=== PATIENT | female | born 1990 | race Caucasian/White ===

== ENCOUNTER 2016-11-20 18:52 | Emergency (ER) | payer OTHER ==
[~2016-11-20] VITALS: Ht 175.3 cm; Wt 60.4 kg
[2016-11-20 18:57] VITALS: TEMP 36.4; Ht 175.3 cm; Wt 60.4 kg
[2016-11-20 19:36] LABS: BASO % 0.5 %; BASO ABS # 0.04 K/uL (0-0.2); COMPLETE YES; EOS % 1.7 %; HEMATOCRIT 39.9 % (37-47); IG% 0.2 %; LYMPH % 18.3 %; LYMPH ABS # 1.48 K/uL (1.2-3.4); MEAN CELL VOLUME 87.7 fL (80-100); MEAN CORPUSCULAR HEMOGLOBIN 30.5 pg (25-34); MEAN CORPUSCULAR HGB CONC 34.8 g/dl (32-36); MEAN PLATELET VOLUME 9.7 fL (7.4-10.4); MONO % 4.4 %; NEUT % 74.9 %; PLATELET COUNT 315 K/uL (130-400); RED BLOOD COUNT 4.55 M/uL (4.2-5.4)
[2016-11-20] MEDS ORDERED: ESTROGEN TD (19:44)
[2016-11-20] MEDS ORDERED: LEVO25TA5 PO (19:47)
[2016-11-20] MEDS ORDERED: ESTR2TAB PO (19:47)
[2016-11-20] MEDS ORDERED: ENOX40IN SQ (19:48)
[2016-11-20] MEDS ORDERED: PRGI IM (19:50)
[2016-11-20] MEDS ORDERED: PROGESTERONE SUPP PV (19:52)
[2016-11-20 19:53] LABS: BUN/CREATININE RATIO 6.5 (10-20); CALCIUM 9.2 mg/dl (8.5-10.1); CREATININE 0.68 mg/dl (0.60-1.20); POTASSIUM 3.8 mmol/L (3.5-5.1)
[2016-11-20] MEDS ORDERED: PREN1TAB29 PO (19:55)
[2016-11-20 20:15] LABS: URINE APPEARANCE CLEAR (CLEAR); URINE BILIRUBIN NEG (NEG); URINE COLOR YELLOW; URINE NITRITE NEG (NEG); URINE SPECIFIC GRAVITY 1.003 (1.000-1.030); UROBILINOGEN NEG (NEG)
[2016-11-20 20:18] LABS: MANUAL MICROSCOPIC REQUIRED? YES; REVIEW REQ? NO
--- NOTE | 2016-11-20 20:32 | DIAGNOSTIC IMAGING REPORT ---
ECTOPIC CLINICAL HISTORY: vag bleed 8 weeks TECHNIQUE: Ultrasound COMPARISON STUDY: None FINDINGS: Intrauterine gestational sac. A pole is identified. Cardiac activity is identified. Right ovary measures 3.2 cm with normal vascular flow. Left ovary measures 2.57 measures normal vascular flow. IMPRESSION: 1. Single, viable intrauterine estimated at 6 weeks gestational age. 2. A repeat ultrasound is recommended in 7 days to 10 days confirm viability as the gestational age currently is at the limits of resolution for viability evaluation with absolute certainty. The above report was generated using voice recognition software. It may contain grammatical, syntax or spelling errors. Electronically signed by: Mian Eng M.D. 11/20/2016 8:31 PM Dictated Date/Time: 11/20/2016 8:29 PM
[2016-11-20 20:38] LABS: URINE BACTERIA 1+ (NEG); URINE RBC 0-4 /hpf (0-4); URINE WBC 0 /hpf (0-5)
[2016-11-20 21:21] VITALS: BP 112/78; PULSE 82; O2SAT 100
--- NOTE | 2016-11-21 00:20 | EMERGENCY ROOM VISIT NOTE ---
History Report prepared by Colby: Terell Mora Under the Supervision of: Dr. Ezekiel Nicole M.D. First contact with patient: 18:59 Chief Complaint: ED VAG BLEEDING Stated Complaint: BLEEDING, 6WKS History of Present Illness The patient is a 25 year old female who presents to the Emergency Room with complaints of intermittent vaginal bleeding that started a week ago. The patient states that she is 6 weeks and noticed she was spot bleeding last week. She states that she called [facility] who told her to rest, keep her feet up, and wait for her ultrasound that is in three days. The patient states that the bleeding resolved until today when she was at the football game and noticed some spotting again. She states that she left the game and went home. The patient states that she put her progesterone suppository in and took it out without any indication of bleeding. She states that following this, she began vaginally bleeding. The patient states that this is her second and it is an IVF . She states that she usually uses a progesterone suppository three times a day and in oil every other day. She admits that she did her oil treatment today at 1700. The patient admits to dry heaving, but reports that she believes this is due to her typical morning sickness. She admits to a history of hyperthyroidism and factor 5 Leiden, which she takes medication for. She is on Lovenox. The patient denies any h/o miscarriage, hypertension, pelvic pain, and fever. Source of History: patient Onset: a week ago Position: other (vaginal region) Symptom Intensity: mild Quality: other (vaginal bleeding) Timing: intermittent Associated Symptoms: No fevers, No abdominal pain Review of Systems See HPI for pertinent positives & negatives. A total of 10 systems reviewed and were otherwise negative. Past Medical & Surgical Medical Problems: (1) Asthma (2) Factor 5 Leiden mutation, heterozygous (3) Fibromyalgia (4) Hypothyroidism (5) IBS (irritable bowel syndrome) Surgical Problems: (1) History of appendectomy (2) History of cholecystectomy Family History FH: breast cancer Social History Smoking Status: Never Smoker Smokeless Tobacco Use: No Alcohol Use: none Drug Use: none Occupation Status: unemployed Current/Historical Medications Scheduled Enoxaparin (Lovenox), 40 MG SQ DAILY Estradiol (Estradiol), 2 MG PO BID Levothyroxine Sodium (Levothyroxine Sodium), 25 MCG PO DAILY Vit W/ Ferrous Fumara (), 1 TAB PO DAILY Progesterone (Progesterone), 1 ML IM Q2D [Estrogen Patch 1.56], 6.24 TD Q2D [Progesterone Supp], 100 MG PV TID Allergies Coded Allergies: Tramadol (Verified Allergy, Severe, seizure, 11/20/16) Physical Exam Vital Signs Date Time Temp Pulse Resp B/P (MAP) Pulse Ox O2 Delivery O2 Flow Rate FiO2 11/20/16 21:21 82 18 112/78 100 11/20/16 18:57 36.4 98 18 139/78 98 Room Air Physical Exam Constitutional: Vital signs reviewed. Eyes: Pupils are equal round reactive to light. Conjunctiva are noninjected. ENT: Pharynx is clear without erythema or exudate. Mucous membranes are moist. Neck supple without meningeal signs. Respiratory: Clear to auscultation bilaterally. Breath sounds are equal bilaterally. Cardiovascular: Regular rate and rhythm. No rubs or gallops. GI: Soft, nondistended and nontender. Bowel sounds are present. Musculoskeletal: No peripheral edema. No lower extremity tenderness. Integumentary: No cyanosis. Neurological: The patient is awake and alert. No focal deficits. Psychiatric: Normal affect. Medical Decision & Procedures ER Provider Diagnostic Interpretation: Radiology results as stated below per my review and the radiologist's interpretation: ECTOPIC CLINICAL HISTORY: vag bleed 8 weeks TECHNIQUE: Ultrasound COMPARISON STUDY: None FINDINGS: Intrauterine gestational sac. A pole is identified. Cardiac activity is identified. Right ovary measures 3.2 cm with normal vascular flow. Left ovary measures 2.57 measures normal vascular flow. IMPRESSION: 1. Single, viable intrauterine estimated at 6 weeks gestational age. 2. A repeat ultrasound is recommended in 7 days to 10 days confirm viability as the gestational age currently is at the limits of resolution for viability evaluation with absolute certainty. The above report was generated using voice recognition software. It may contain grammatical, syntax or spelling errors. Electronically signed by: Mian Eng M.D. 11/20/2016 8:31 PM Dictated Date/Time: 11/20/2016 8:29 PM Laboratory Results 11/20/16 19:21 Red Blood Count 4.55, Mean Corpuscular Volume 87.7, Mean Corpuscular Hemoglobin 30.5, Mean Corpuscular Hemoglobin Concent 34.8, Mean Platelet Volume 9.7, Neutrophils (%) (Auto) 74.9, Lymphocytes (%) (Auto) 18.3, Monocytes (%) (Auto) 4.4, Eosinophils (%) (Auto) 1.7, Basophils (%) (Auto) 0.5, Neutrophils # (Auto) 6.06, Lymphocytes # (Auto) 1.48, Monocytes # (Auto) 0.36, Eosinophils # (Auto) 0.14, Basophils # (Auto) 0.04 11/20/16 19:21 Test 11/20/16 19:19 11/20/16 19:21 Urine Color YELLOW Urine Appearance CLEAR (CLEAR) Urine pH 7.0 (4.5-7.5) Urine Specific Lyman 1.003 (1.000-1.030) Urine Protein NEG (NEG) Urine Glucose (UA) NEG (NEG) Urine Ketones NEG (NEG) Urine Occult Blood 2+ (NEG) Urine Nitrite NEG (NEG) Urine Bilirubin NEG (NEG) Urine Urobilinogen NEG (NEG) Urine Leukocyte Esterase NEG (NEG) Urine WBC (Auto) /hpf (0-5) Urine RBC (Auto) /hpf (0-4) Urine Hyaline Casts (Auto) /lpf (0-5) Urine Epithelial Cells (Auto) /lpf (0-5) Urine Bacteria (Auto) (NEG) Urine RBC 0-4 /hpf (0-4) Urine WBC 0 /hpf (0-5) Urine Epithelial Cells 10-20 /lpf (0-5) Urine Bacteria 1+ (NEG) White Blood Count 8.10 K/uL (4.8-10.8) Red Blood Count 4.55 M/uL (4.2-5.4) Hemoglobin 13.9 g/dL (12.0-16.0) Hematocrit 39.9 % (37-47) Mean Corpuscular Volume 87.7 fL (80-100) Mean Corpuscular Hemoglobin 30.5 pg (25-34) Mean Corpuscular Hemoglobin Concent 34.8 g/dl (32-36) Platelet Count 315 K/uL (130-400) Mean Platelet Volume 9.7 fL (7.4-10.4) Neutrophils (%) (Auto) 74.9 % Lymphocytes (%) (Auto) 18.3 % Monocytes (%) (Auto) 4.4 % Eosinophils (%) (Auto) 1.7 % Basophils (%) (Auto) 0.5 % Neutrophils # (Auto) 6.06 K/uL (1.4-6.5) Lymphocytes # (Auto) 1.48 K/uL (1.2-3.4) Monocytes # (Auto) 0.36 K/uL (0.11-0.59) Eosinophils # (Auto) 0.14 K/uL (0-0.5) Basophils # (Auto) 0.04 K/uL (0-0.2) RDW Standard Deviation 39.1 fL (36.4-46.3) RDW Coefficient of Variation 12.2 % (11.5-14.5) Immature Granulocyte % (Auto) 0.2 % Immature Granulocyte # (Auto) 0.02 K/uL (0.00-0.02) Anion Gap 8.0 mmol/L (3-11) Est Creatinine Clear Calc Drug Dose 119.5 ml/min Estimated GFR () 139.9 Estimated GFR (Non- 120.7 BUN/Creatinine Ratio 6.5 (10-20) Calcium Level 9.2 mg/dl (8.5-10.1) Human Chorionic Gonadotropin, Quant 41794 mIU/mL Laboratory results as reviewed by me. ED Course 1899: The patient was evaluated in room C10. A complete history and physical exam was performed. 2101: I discussed the patients case with Dr. Stephens, CERT PHARMACY TECH. She said to allow the patient to continue using suppositories without the applicator. 2109: I discussed the patient's results with the patient and her . I discussed the treatment plan and they agreed. The patient was discharged home. Medical Decision This is a 25-year-old female who presents with vaginal bleeding. Differential diagnosis includes ectopic , heterotopic , threatened miscarriage, miscarriage, uterine fibroid, polyp. I did perform a limited focused review of portions of the patient's old chart on the electronic medical record. The patient has had no recent pertinent visits to this hospital. I did evaluate the patient as noted above. IV access was established. I did order and review the patient's blood work as noted in the electronic medical record. She is not anemic. Beta hCG is over 18,000. I did order an ultrasound pelvis. I did review the images myself as well as the radiology report as described above. There is a live IUP. I did discuss the test results with the patient. She states that her bleeding has now stopped. She has no pain or bleeding at this time. I did discuss the case with the folder and notcher sales operations associate who recommended she continue with the progesterone suppositories but without the applicator. She was given return instructions as outlined below. She'll follow up in several days for repeat ultrasound. Medication Reconcilliation Current Medication List: was personally reviewed by me Blood Pressure Screening Patient's blood pressure: Elevated blood pressure Blood pressure disposition: Elevated BP felt to be situational Consults Time Called: 2101 Consulting Physician: Dr. Stephens, CERT PHARMACY TECH Returned Call: 2101 I discussed the patients case with Dr. Stephens, CERT PHARMACY TECH. She said to allow the patient to continue using suppositories without the applicator. Impression Primary Impression: Threatened miscarriage Scribe Attestation The scribe's documentation has been prepared under my direct and personally reviewed by me in its entirety. I confirm that the note above accurately reflects all work, treatment, procedures, and medical decision making performed by me. Departure Information Dispostion Home / Self-Care Referrals No Doctor, Assigned (PCP) Forms HOME CARE DOCUMENTATION FORM, IMPORTANT VISIT INFORMATION, WORK / SCHOOL INSTRUCTIONS Patient Instructions ED Therapeutic , My [facility] Additional Instructions You have been examined and treated today on an emergency basis only. This is not a substitute for, or an effort to provide, complete comprehensive medical care. It is impossible to recognize and treat all injuries or illnesses in a single emergency department visit. It is therefore important that you follow up closely with your physician for repeat ultrasound next week. Call as soon as possible for an appointment. Return for worsening symptoms or if you develop fever, vomiting, abdominal pain or any other concerning symptoms.
== END 2016-11-20 21:22 | disposition home or self-care (01) ==
LOC: C.EDB 18:55 → C.EDC 21:22
DX: O20.0 Threatened abortion (principal); Z3A.01 Less than 8 weeks gestation of pregnancy; O99.511 Diseases of the respiratory system complicating pregnancy, first trimester; J45.909 Unspecified asthma, uncomplicated; O99.111 Other diseases of the blood and blood-forming organs and certain disorders involving the immune mechanism complicating pregnancy, first trimester; D68.2 Hereditary deficiency of other clotting factors; O26.891 Other specified pregnancy related conditions, first trimester; M79.7 Fibromyalgia; O99.281 Endocrine, nutritional and metabolic diseases complicating pregnancy, first trimester; E03.9 Hypothyroidism, unspecified; O99.611 Diseases of the digestive system complicating pregnancy, first trimester; K58.9 Irritable bowel syndrome, unspecified; Z80.9 Family history of malignant neoplasm, unspecified; Z79.899 Other long term (current) drug therapy